=== PATIENT | male | born 1950 | race Caucasian/White ===

== ENCOUNTER → 2021-06-02 | Outpatient (CLI) | payer MEDICARE ==
[~2021-06-02] MED LIST: ASPIRIN 32325 MG/TAB PO; BUDEPRION XL300 MG PO; DEMADEX 20MG20 M1 PO; DEPAKOTE ER 50500 MG PO; FERROUS GLUCON240 MG PO; FLEXERIL 1010 MG/TAB PO; FLOMAX 0.40.4 MG/CAP PO; FOLIC ACID 40400 MCG PO; KLONOPIN 0.5MG0.5 MG PO; KLONOPIN 1MG1 MG PO; LANTUS100 U/ML SQ; NIASPAN1000 MG PO; NORCO 325 MG-7.1 TAB PO; PERCOCET 325 MG1 TA2 PO; PLAVIX 75MG TAB75 MG PO; PRILOSEC 20MG20 MG PO; VITAMIN C500 MG PO; VYTORIN 10 MG-41 TAB PO; ZOCOR 20MG20 MG PO
== END ==
LOC: COL.RAD 12:21
DX: M25.552 Pain in left hip (principal)
CPT/HCPCS: J3301; Q9967